=== PATIENT | female | born 1940 | race Caucasian/White ===

== ENCOUNTER → 2023-09-03 10:33 | Outpatient (REF) | payer MEDICARE, OTHER, SELFPAY ==
--- NOTE | 2023-08-27 13:23 | WATCHMAN ---
Watchman
Wathcman Procedure
Referred by:: [place]
Date of Referral:: 08/22/23
[id number] Score
Age in Years (65=0, 65-74=1, >/=75=2): > or = 75
Sex (Female=+1): Female
Congestive Heart Failure History (Yes=+1): No
Hypertension History (Yes=+1): Yes
Stroke/TIA/Thromboembolism History (Yes=+2): No
Vascular Disease History (Yes=+1): No
Diabetes Mellitus (Yes=+1): No
Score: 4
Anticoagulation Recommendations: Recommend anticoagulation (as validated in nonvalvular fib)
HASBLED Score
Hypertenstion (uncontrolled >160mmHG systolic): Yes
Renal disease (dialysis, transplant, Cr >2.26mg/dL or >200umol/L): No
Liver disease (cirrhosis or bilirubin >2x normal w/ AST/ALT/AP >3x normal: No
Stroke history: No
Prior major bleeding or predisposition to bleeding: Yes
Labile INR(unsable/high INRs,time in therapeutic range <60%): No
Age >65: Yes
Medication usage predisposing to bleeding(ASA, NSAIDS): No
Alcohol use (>/= 8 drinks/week): No
Score: 3
Risk: Alternatives to anticoagulation should be considered: Patient is at high risk for major bleeding
Electrocardiogram
Interpretation: abnormal
Heart Rate: 74
Rate: normal
Rhythm: sinus
Physician Visits
Floor Polisher:: [place]
Date of Visit:: 08/22/23
Primary Cable Tester:: [place]
PCP:: Justine Crenshaw
Oral Anticoagulation
Post procedure anticoagulation plan:: 3 month EMILIA post implant. She is on the appropriate dose eliquis likely will switch to eliquis 2.5mg bid after implant and stop after 3 month MEILIA
Plan
Plan:: 08/27/2023: Called and spoke to patient. Provided with contact information. Allowed for and answered questions.
== END ==
LOC: RAD 10:33
PROVIDERS: ATTENDING PHYSICIAN Internal Medicine Cardiovascular Disease; FAMILY PHYSICIAN Family Medicine
DX: I48.0 Paroxysmal atrial fibrillation (principal)
CPT/HCPCS: 75572; Q9967

== ENCOUNTER 2023-12-10 07:57 | Inpatient (IN) | payer MEDICARE, OTHER, SELFPAY ==
[2023-12-02 09:54] VITALS: BMI 32.6
[2023-12-02 10:45] LABS: % Basophils 0.5 % (0-2); % Eosinophils 1.9 % (0-6); % Immature Granulocytes 0.2 % (0-0.5); % Lymphocytes 22.3 % (20.5-51.1); % Monocytes 10.2 % (1.7-9.3); % Neutrophils 64.9 % (42.2-75.2); Absolute Eosinophils 0.2 10^3/uL (0-0.7); Absolute Lymphocytes 1.9 10^3/uL (1.2-3.4); Absolute Monocytes 0.9 10^3/uL (0.1-0.6); Absolute Neutrophils 5.4 10^3/uL (1.4-6.5); Hematocrit 44.7 % (37.0-47.0); Hemoglobin 14.8 g/dL (12.0-16.0); Mean Corp Hgb Conc. 33.1 g/dL (33.0-37.0); Mean Corpuscular Hgb 28.1 pg (27.0-31.0); Nucleated Red Blood Cells % 0 %; Platelet Count 244 10^3/uL (130-400); Red Blood Cell Count 5.26 10^6/uL (4.20-5.40); Red Cell Dist. Width 17.1 % (11.5-14.5); White Blood Cell Count 8.3 10^3/uL (4.8-10.8)
[2023-12-02 10:51] LABS: INR 1.31; PT 16.1 Sec (11.4-14.6)
[2023-12-02 11:13] LABS: ALT (SGPT) 24 U/L (0-35); AST (SGOT) 24 U/L (14-36); Albumin 2.9 g/dl (3.5-5.0); Alkaline Phosphatase 56 U/L (38-126); Blood Urea Nitrogen 20 mg/dl (7-17); Calcium 9.7 mg/dl (8.4-10.2); Carbon Dioxide 28 mmol/L (22-30); Chloride 99 mmol/L (98-107); Estimated Creatinine Clearance 72 ml/min; Glucose 126 mg/dl (70-99); Potassium 3.9 mmol/L (3.5-5.1); Sodium 140 mmol/L (135-145); Total Bilirubin 0.5 mg/dl (0.2-1.3); Total Protein 6.6 g/dl (6.3-8.2); eGFR > 60.00
[2023-12-10] VITALS (11 sets, daily range): BP systolic 88–147; BP diastolic 49–71; BMI 32.5
[2023-12-10 10:21] LABS: ACT-LR - POC 265 Seconds (116-155)
--- NOTE | 2023-12-10 10:55 | ITS.CL.PN ---
Performance Test Architect - Procedure Note
Procedure
Procedure Note:
Watchman implantation report
Date: December 10, 2023
History: Frequent and recurrent nosebleeds requiring electrocautery as well as elevated stroke risk on oral anticoagulation. Presents for watchman implantation.
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
Device delivery: Lyle
Procedure note:
After informed consent and patient's safety timeout patient was anesthetized by the anesthesiology service. General anesthesia was utilized and the EMILIA probe was placed by Dr. Mrs. Emmanuel at the bedside please see separate EPS report. Under direct
ultrasound guidance the right femoral vein was accessed with an 8 Togolese short sheath and a 9 Togolese short sheath. The 8 Togolese short sheath was upgraded to the watchman delivery sheath. We initially utilized a 10 Togolese steerable sheath for
transseptal puncture and brought the watchman sheath to the left atrium over a ProTrac wire.
Heparin was infused with bolus and drip for a goal ACT of greater than 250 seconds with boluses after each ACT. Protamine 35 mg was given at the end of the procedure after [id number] suture. Once left atrial access was performed with a 10
Togolese steerable sheath utilizing a safe septal wire the sheath was upgraded over a ProTrac wire to the watchman delivery sheath. A pigtail catheter was placed in left atrial appendage demonstrating a 25 mm os with greater than 30 mm depth and as
such we prepared a 31 mm device. Once the device was properly flushed it was brought to the field and delivered into the appendage.
Pass criteria were determined with 21 to 26% compression, no leak on the device, no device thrombus, tug test did not change the position of the device and the position of the device was ostial. Once these criteria were met the device was deployed
and the sheath was removed to the right atrium. Protamine was given and sheaths were removed with a [id number] suture to the right femoral vein with adequate hemostasis. The patient was extubated in stable condition.
Impression:
Status post 31 mm device delivery as above
Recommendations:
Consider same-day discharge after ambulation.
Given her recent nosebleed we will lower her Eliquis to 2.5 mg twice daily for 3 months with repeat EMILIA in 3 months
I communicated findings with patient's daughter and with her family friend Dr. Salazar
--- NOTE | 2023-12-10 15:20 | W.PN.UPDATE ---
Update Note
Progress Note Update
83y WF s/p 31mm Watchman device implant (same day). She denies cp, sob, rylee diet, voiding amb w/o dizziness, EKG SR 1deg AVB, R fem site c/d/i no HT, soft. She will decrease Eliquis to 2.5mg bid starting tonight. Activity restrictions reviewed. She
has her f/u EMILIA scheduled in Feb. She will f/u with BUT[facility]ER in 3 mo. She is for d/c home after 330pm
--- NOTE | 2023-12-10 15:22 | W.DS.TRANS ---
DC Summary - Technical Service Representative
-
Discharge Instructions:
Discharge Diagnosis/Procedures Afib post Watchman device implant
Diet Low Cholesterol
Driving Restrictions No driving for 24 hours
Others Tests Follow up EMILIA has been scheduled for you at
[facility] on 03/10/2024. You will
receive instructions in the mail and a call the
day prior with arrival time.
Instructions: Left Atrial Appendage Closure
Stand-Alone Forms: DC Instructions- Cath/EP Lab
Changes to Home Medications: Yes
Discharge Medications:
DC Medications w/original date entered in [address]
acetaminophen 500 mg tablet 1,000 mg PO BID 11/26/23
alprazolam 0.25 mg tablet (Xanax) 0.25 mg PO PRN PRN Anxiety 11/26/23
escitalopram oxalate 10 mg tablet 10 mg PO DAILY 11/26/23
hydrochlorothiazide 25 mg tablet 25 mg PO DAILY 11/26/23
metoprolol succinate 50 mg tablet,extended release 24 hr 25 mg PO DAILY 11/26/23
multivitamin with minerals-folic acid 200 mcg chewable tablet (Multivitamin Gummies) 1 tab PO DAILY 11/26/23
omeprazole 20 mg delayed release,disintegrating tablet 20 mg PO DAILY PRN GERD 11/26/23
rosuvastatin 20 mg tablet 20 mg PO DAILY 11/26/23
amoxicillin 500 mg capsule 2,000 mg PO PRN PRN dental procedure 12/10/23
apixaban 2.5 mg tablet (Eliquis) 2.5 mg PO BID #60 tabs 12/10/23
Home Medication Changes
Decreased eliquis to 2.5mg bid
Pending Results: No
== END 2023-12-10 15:30 | disposition home or self-care (01) | DRG 274 ==
LOC: CATH-IN 07:57
PROVIDERS: Internal Medicine Cardiovascular Disease; ADMITTING PHYSICIAN Internal Medicine Cardiovascular Disease; FAMILY PHYSICIAN Family Medicine
PROC: 02L73DK Occlusion of Left Atrial Appendage with Intraluminal Device, Percutaneous Approach (ICD-10-PCS; 2023-12-10)
PROC: B24BZZ4 Ultrasonography of Heart with Aorta, Transesophageal (ICD-10-PCS; 2023-12-10)
DX: I48.0 Paroxysmal atrial fibrillation (principal); I50.32 Chronic diastolic (congestive) heart failure; I47.20 Ventricular tachycardia, unspecified; I42.8 Other cardiomyopathies; I11.0 Hypertensive heart disease with heart failure; G47.33 Obstructive sleep apnea (adult) (pediatric); F41.9 Anxiety disorder, unspecified; F32.A Depression, unspecified; R04.0 Epistaxis; M19.90 Unspecified osteoarthritis, unspecified site; E78.5 Hyperlipidemia, unspecified; R91.1 Solitary pulmonary nodule; I48.92 Unspecified atrial flutter; I35.1 Nonrheumatic aortic (valve) insufficiency; E66.9 Obesity, unspecified; Z68.32 Body mass index [BMI] 32.0-32.9, adult; Z96.653 Presence of artificial knee joint, bilateral; Z96.611 Presence of right artificial shoulder joint; Z79.01 Long term (current) use of anticoagulants; Z79.899 Other long term (current) drug therapy
CPT/HCPCS: 33340; 36415; 80053; 85025; 85347; 85610; 86850; 86900; 86901; 87070; 87147; 93005; 93355; C1759; C1766; C1769; C1892; C1894; Q9967

== ENCOUNTER 2024-03-10 07:54 | Day surgery (SDC) | payer MEDICARE, OTHER, SELFPAY ==
[2024-03-10 08:16] VITALS: BMI 33.5
== END 2024-03-10 10:29 | disposition home or self-care (01) ==
LOC: CATH 07:54
PROVIDERS: ATTENDING PHYSICIAN Internal Medicine Cardiovascular Disease; FAMILY PHYSICIAN Family Medicine; OTHER PHYSICIAN Internal Medicine Cardiovascular Disease
DX: Z45.09 Encounter for adjustment and management of other cardiac device (principal); I08.3 Combined rheumatic disorders of mitral, aortic and tricuspid valves; I48.0 Paroxysmal atrial fibrillation; I11.0 Hypertensive heart disease with heart failure; I50.22 Chronic systolic (congestive) heart failure; E78.5 Hyperlipidemia, unspecified; Z87.891 Personal history of nicotine dependence; Z79.01 Long term (current) use of anticoagulants
CPT/HCPCS: 93312; 93320; 93325

== ENCOUNTER → 2024-06-30 09:55 | Outpatient (REF) | payer MEDICARE, OTHER, SELFPAY | LOC: HWRAD 09:55 | PROVIDERS: ATTENDING PHYSICIAN Family Medicine | DX: M79.672 Pain in left foot (principal) | CPT/HCPCS: 73610; 73630 ==